=== PATIENT | female | born 2000 | race American Indian/Alaskan Native ===

== ENCOUNTER 2021-02-22 22:29 | Emergency (ER) | payer SELFPAY ==
[2021-02-23 00:08] VITALS: BP 122/78
--- NOTE | 2021-02-23 00:42 | XRay Report ---
LEFT LOWER LEG 2 VIEWS INDICATION / CLINICAL INFORMATION: Laceration. COMPARISON: None available. FINDINGS: BONES / JOINT(S): No acute fracture or subluxation. No significant arthritis. SOFT TISSUES: I see no evidence of a radiopaque foreign body. ADDITIONAL FINDINGS: None. Signer Name: Yanick Sesay MD Signed: 02/23/2021 12:38 AM Workstation Name: [id number]
[2021-02-23] MEDS ORDERED: LIDOCAINE (1%) 10 MG/1 ML VIAL 20 ML MDV INFILTRATI ONE (01:53)
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
== END 2021-02-23 02:50 | disposition home or self-care (01) ==
LOC: EDBD → ED 22:29
DX: S81.812A Laceration without foreign body, left lower leg, initial encounter (principal); S40.812A Abrasion of left upper arm, initial encounter; S60.512A Abrasion of left hand, initial encounter; F17.200 Nicotine dependence, unspecified, uncomplicated; F12.10 Cannabis abuse, uncomplicated; Y04.2XXA Assault by strike against or bumped into by another person, initial encounter; Y93.89 Activity, other specified; Y92.89 Other specified places as the place of occurrence of the external cause; Y99.8 Other external cause status